=== PATIENT | male | born 1945 | race Caucasian/White ===

== ENCOUNTER → 2023-05-02 14:15 | Outpatient (CLI) | payer OTHER, SELFPAY ==
--- NOTE | 2023-05-02 14:19 | DI.ECHO.S_ITS ---
[facility]---------+ [facility] +---------+ : : [address] : [address] : : : : [id number] : : : : Phone: [phone]+ Echocardiogram Report + + :Name: RADHA FALL Study Date: 05/02/2023 Height: 73 in : :[facility] ReadingLocation: Weight: 235 lb: : Gender: Male BSA: 2.3 m2 : :: 1945 Age: 77 yrs BP: 98/75 mmHg: :Reason For Study: HYPERTENSION : :Ordering Physician: VONNIE, : :CECILIA Performed By: Alex Yao : :Referring: CECILIA JEREZ : + + Interpretation Summary TDS The ejection fraction is estimated to be 40-45%. Septal motion is consistent with conduction abnormality. Right ventricular systolic function is mildly reduced. There is mild to moderate tricuspid regurgitation. The right ventricular systolic pressure is estimated to be at least 32 mmHg based on an estimated right atrial pressure of 3 mm Hg. Procedure: A two-dimensional transthoracic echocardiogram with color flow and Doppler was performed. The study quality was technically difficult. Comparison is made with the echocardiogram of 11/05/2018. The patient was in normal sinus rhythm during the exam. The heart rate ranged between 60-67 bpm during the study. Left Ventricle: The left ventricle is normal in size and wall thickness. The ejection fraction is estimated to be 40-45%. Septal motion is consistent with conduction abnormality. Right Ventricle: The right ventricle grossly appears normal in size with probable normal systolic function. Right ventricular systolic function is mildly reduced. Atria: The left atrial size is normal. Right atrial size is normal. The interatrial septum grossly appears intact with no obvious evidence for an atrial septal defect. Mitral Valve: The mitral valve is grossly normal. There is no mitral valve stenosis. There is mild to moderate mitral regurgitation. Compared to the prior echo study, there has been an increase in the severity of mitral regurgitation. Aortic Valve: The aortic valve is not well visualized. There is no aortic valve stenosis. No aortic regurgitation is present. Tricuspid Valve: The tricuspid valve is normal in structure and function. There is no tricuspid stenosis. There is mild to moderate tricuspid regurgitation. The right ventricular systolic pressure is estimated to be at least 32 mmHg based on an estimated right atrial pressure of 3 mm Hg. Compared to the prior echo exam, there has been no change in TR severity. Pulmonic Valve: The pulmonic valve is not well visualized. Great Vessels: The aortic root is not well visualized. The ascending aorta could not be visualized. The IVC is of normal diameter and collapses greater than 50% with a sniff. This suggests a low right atrial pressure of 3 mm Hg. Pericardium/ Pleura There is no pericardial effusion. There is no pleural effusion. MMode/2D Measurements & Calculations LVIDd: 5.3 cm LVOT diam: 2.0 cm LVIDs: 4.2 cm FS: 20.5 % IVSd: 0.97 cm LVPWd: 1.1 cm LV de la paz. diameter/BSA (cm/m^2): 2.3 LV sys. diameter/BSA (cm/m^2): 1.8 LA A2 area: 24.2 cm2 RA long axis: 4.5 cm LA A4 area: 24.5 cm2 RA area: 19.5 cm2 LA length (vol): 5.4 cm RA vol: 71.7 ml LA vol: 92.3 ml RA : 31.1 ml/m2 LA vol index: 40.1 ml/m2 IVC diam: 1.5 cm RVD1 (basal): 3.8 cm RVD2 (mid): 3.1 cm TAPSE: 1.7 cm Doppler Measurements & Calculations Ao V2 max: 132.8 cm/sec LVOT Max Fausto: 65.5 cm/sec Ao V2 mean: 98.9 cm/sec LV V1 max P.7 mmHg Ao max P.1 mmHg LV V1 VTI: 17.7 cm Ao mean P.3 mmHg STACIA(I,D): 1.8 cm2 Ao V2 VTI: 30.1 cm STACIA(V,D): 1.5 cm2 sev ratio: 0.59 STACIA indexed to BSA (cm^2/m^2): 0.78 MV E max fausto: 56.8 cm/sec TR max fausto: 270.8 cm/sec MV A max fausto: 63.9 cm/sec TR max P.3 mmHg MV E/A: 0.89 Med Peak E' Fausto: 6.3 cm/sec E/E' med: 9.0 Lat Peak E' Fausto: 10.8 cm/sec E/E' lat: 5.3 E/e' average: 7.1 MV dec time: 0.28 sec SVLVOT): 54.4 ml Reading Physician:03:47 PM
== END ==
PROVIDERS: Referring Provider Internal Medicine Cardiovascular Disease; Visit Provider Internal Medicine Cardiovascular Disease
DX: I10 Essential (primary) hypertension (principal); I08.1 Rheumatic disorders of both mitral and tricuspid valves
CPT/HCPCS: 93306

== ENCOUNTER → 2023-08-08 13:05 | Outpatient (CLI) | payer OTHER, SELFPAY ==
--- NOTE | 2023-08-08 13:07 | DI.NM.S_ITS ---
PROCEDURE: NM CHRYSTAL PERF SPECT R&S PHARM Rest and pharmacological stress myocardial perfusion SPECT with gated imaging and ejection fraction RADIOPHARMACEUTICAL: 26.4 mCi Tc-99m tetrafosmin IV at rest and 24.4 mCi Tc-99m tetrafosmin IV at peak effect of pharmacological stress. [id number] was performed. INDICATIONS: CLAUDICATION/CHRONIC SYSTOLIC HEART FAILURE TECHNIQUE: Radiopharmaceutical was injected at peak stress test, and also at rest. SPECT images were obtained. SPECT myocardial perfusion images were displayed in short axis, horizontal long axis, and vertical long axis views. Gated images were reviewed using Genbook software. COMPARISON: None. CARDIAC STRESS: A pharmacologic stress test was performed under the supervision of an attending staff, using an infusion of regadenoson 0.4 mg IV. Hemodynamic data: There is normal blood pressure and heart rate response to pharmacologic stress. Symptoms: The patient denied anginal chest pain. EKG: No diagnostic changes of ischemia; no ectopy. FINDINGS: Raw data: There is good myocardial uptake of radiotracer. No significant motion artifacts. Esrc-ia-[id number] ratio is 0.41 (normal is less than 0.38 for tetrafosmin tracer). Left ventricle function: Gated images demonstrate inferior hypokinesis. No transient ischemic dilation; TID is 0.92 (normal less than 1.3). Left ventricle resting end diastolic volume is 151 mL. Left ventricle stress ejection fraction is calculated at 67%, visually 45-50%; normal range is above 45%. Myocardial perfusion: There is a large size, moderate to severe intensity fixed inferior wall defect. No reversible perfusion defects. IMPRESSION: Low risk study for ischemia. No reversible perfusion defects. There is a large size, moderate to severe intensity fixed inferior wall defect with associated hypokinesis consistent with prior myocardial infarction. Dilated left ventricle with function at the lower limit of normal. Dictated by: Camila Brady D.O. on 08/09/2023 at 11:32 Approved by: Camila Brady D.O. on 08/09/2023 at 11:35
== END ==
PROVIDERS: PCP Physician Assistant Medical; Referring Provider Internal Medicine; Visit Provider Internal Medicine
DX: I50.22 Chronic systolic (congestive) heart failure (principal); I73.9 Peripheral vascular disease, unspecified
CPT/HCPCS: 78452; 93017; A9502; J2785

== ENCOUNTER → 2023-08-09 | Outpatient (CLI) | payer OTHER, SELFPAY ==
--- NOTE | 2023-08-09 | DI.US.S_ITS ---
PROCEDURE: US ARTERIAL DUPLEX LE BI INDICATIONS: CLAUDICATION/CHRONIC SYSTOLIC HEART FAILURE TECHNIQUE: Color and pulse Doppler interrogation was performed of both lower extremity arterial systems, with image documentation. COMPARISON: Outside Film, CT, CT ABDOMEN PELVIS WITH CONTRAST, 08/08/2020, 16:04. FINDINGS: Right lower extremity: Common femoral artery: 81 cm/sec, with biphasic (above baseline) flow. Deep femoral artery: 81 cm/sec, with biphasic (above baseline) flow. Proximal superficial femoral artery: 76 cm/sec, with monophasic flow. Mid superficial femoral artery: 124 cm/sec, with monophasic flow. Distal superficial femoral artery: 113 cm/sec, with monophasic flow. Popliteal artery: 36 cm/sec, with monophasic flow. Posterior tibial artery: 43 cm/sec, with monophasic flow. Anterior tibial artery/dorsalis pedis: 43 cm/sec, with monophasic flow. Quintero-scale imaging description: Scattered atherosclerotic plaque. Left lower extremity: Common femoral artery: 129 cm/sec, with biphasic flow. Deep femoral artery: 96 cm/sec, with biphasic flow. Proximal superficial femoral artery: 81 cm/sec, with biphasic flow. Mid superficial femoral artery: 88 cm/sec, with biphasic flow. Distal superficial femoral artery: 64 cm/sec, with biphasic flow. Popliteal artery: 67 cm/sec, with biphasic flow. Posterior tibial artery: 71 cm/sec, with biphasic flow. Anterior tibial artery/dorsalis pedis: 98 cm/sec, with biphasic flow. Quintero-scale imaging description: Scattered atherosclerotic plaque. IMPRESSION: Right lower extremity demonstrates predominantly monophasic waveforms suggestive of aortoiliac inflow disease. Left lower extremity demonstrates multiphasic waveforms with no velocity shift to suggest a hemodynamically significant stenosis. If clinical symptoms persist, consider a CTA runoff for further evaluation. Dictated by: Cody Alex M.D. on 08/09/2023 at 16:56 Approved by: Cody Alex M.D. on 08/09/2023 at 16:59
== END ==
PROVIDERS: PCP Physician Assistant Medical; Referring Provider Internal Medicine; Visit Provider Internal Medicine
DX: I73.9 Peripheral vascular disease, unspecified (principal)
CPT/HCPCS: 93925

== ENCOUNTER → 2025-01-31 | Outpatient (CLI) | payer OTHER, SELFPAY ==
--- NOTE | 2025-01-31 15:59 | DI.ECHO.S_ITS ---
[facility] +---------+ [facility] : : [address] : : [place] : : [id number] : : Phone: [phone] Echocardiogram Report + + :Name: RADHA FALL Study Date: 01/31/2025 Height: 73 in : :[facility] ReadingLocation: Weight: 255 lb : : Gender: Male BSA: 2.4 m2 : :: 1945 Age: 79 yrs BP: 134/73 mmHg: :Reason For Study: Cardiomyopathy : :Ordering Physician: GEORGIA YANES Performed By: Sherman Caldwell : :Referring: GEORGIA YANES : + + Interpretation Summary Technically difficult study due to poor acoustic windows. No intracardiac echo contrast utilized. - Borderline LV contractility with EF of 50-55% and no obvious WMA. Mild cLVH. Normal diastolic function. - RV poorly visualized. Probable borderline RV contractility. - Normal chamber sizes. - Trace to mild MR - No obvious intracardiac shunts. - No obvious intracardiac masses/thrombi. - No hemodynamilcally significant pericardial effusion. - Low right sided filling pressures. Conclusion: Low normal biventricular function without obvious severe valvular abnormalities. When compared with previous study, there does appear to be improvement of the LV systolic function. Procedure: A two-dimensional transthoracic echocardiogram with color flow and Doppler was performed. The study quality was technically difficult. Comparison is made with the echocardiogram of 05/02/2023. The heart rate ranged between 70-79 bpm during the study. Left Ventricle: The left ventricle is normal in size. Left ventricular wall thickness is mildly increased. The ejection fraction is estimated to be 50- 55%. Normal diastolic function. Right Ventricle: The right ventricle is normal size. Right ventricular systolic function is mildly reduced. Atria: The left atrial size is normal. Right atrial size is normal. There is no Doppler evidence for an interatrial shunt. Mitral Valve: There is mild mitral annular calcification. The mitral valve leaflets appear to open well. There is no mitral valve stenosis. There is mild mitral regurgitation. Aortic Valve: Aortic valve leaflets are not well visualized. No Doppler evidence of valvular stenosis. There is no aortic valve stenosis. No aortic regurgitation is present. Tricuspid Valve: The tricuspid valve is not well visualized, but is grossly normal. There is trace tricuspid regurgitation. The right ventricular systolic pressure is estimated to be at least 31 mmHg based on an estimated right atrial pressure of 3 mm Hg. Pulmonic Valve: The pulmonic valve is not well visualized. Great Vessels: The aortic root is normal size. The aortic arch could not be visualized. The ascending aorta could not be visualized. The pulmonary is not well visualized. The IVC is of normal diameter and collapses greater than 50% with a sniff. This suggests a low right atrial pressure of 3 mm Hg. Pericardium/ Pleura There is no pericardial effusion. MMode/2D Measurements & Calculations LVIDd: 5.4 cm LVOT diam: 2.3 cm LVIDs: 4.5 cm Ao root diam: 3.2 cm FS: 16.5 % IVSd: 1.1 cm LVPWd: 1.1 cm LV de la paz. diameter/BSA (cm/m^2): 2.2 LV sys. diameter/BSA (cm/m^2): 1.9 LA A2 area: 24.4 cm2 RA area: 18.7 cm2 LA A4 area: 17.8 cm2 IVC diam: 2.0 cm LA length (vol): 5.2 cm LA vol: 71.0 ml LA vol index: 29.8 ml/m2 RVD1 (basal): 3.6 cm RVD2 (mid): 3.3 cm TAPSE: 1.4 cm Doppler Measurements & Calculations Ao V2 max: 141.1 cm/sec LVOT Max Fausto: 93.9 cm/sec Ao V2 mean: 104.8 cm/sec LV V1 max P.5 mmHg Ao max P.0 mmHg LV V1 VTI: 17.7 cm Ao mean P.7 mmHg STACIA(I,D): 2.7 cm2 Ao V2 VTI: 26.6 cm STACIA(V,D): 2.7 cm2 sev ratio: 0.67 STACIA indexed to BSA (cm^2/m^2): 1.2 MV E max fausto: 78.0 cm/sec TR max fausto: 262.7 cm/sec MV A max fausto: 76.8 cm/sec TR max P.6 mmHg MV E/A: 1.0 PA V2 max: 149.7 cm/sec Med Peak E' Fausto: 7.3 cm/sec PA V2 mean: 102.1 cm/sec E/E' med: 10.8 PA mean P.0 mmHg Lat Peak E' Fausto: 9.6 cm/sec PA pr(Accel): 31.5 mmHg E/E' lat: 8.1 E/e' average: 9.5 MV dec time: 0.13 sec SVLVOT): 73.0 ml Reading Physician:PETER
== END ==
LOC: ECHO 15:58
PROVIDERS: PCP Physician Assistant Medical; Referring Provider Internal Medicine; Visit Provider Internal Medicine
DX: I34.81 Nonrheumatic mitral (valve) annulus calcification (principal); I34.0 Nonrheumatic mitral (valve) insufficiency; I50.20 Unspecified systolic (congestive) heart failure
CPT/HCPCS: 93306